=== PATIENT | male | born 1950 | race African-American/Black ===

== ENCOUNTER 2017-08-27 06:22 | Day surgery (SDC) | payer OTHER, BC ==
[2017-08-24 14:09] VITALS: BMI 32.1
[~2017-08-27 06:22] MED LIST: CEFAZOLIN 1 GM/D5W 1 GM/50 ML BAG IVPB ONE; ROPIVICAINE 0.2%/MORPH PF/KETOROLAC - 51ML DISP.SYRINGE IA ONE; TRANEXAMIC ACID 1000 MG/10 ML VIAL IVPUSH ONE
[2017-08-27] MEDS: GABAPENTIN 300 MG CAPSULE (FP) PO ONE (06:45)
[2017-08-27] MEDS: oxyCODONE HCL 10 MG SUSTAINED ACTING TABLET PO ONE (06:45)
[2017-08-27] MEDS: CELECOXIB 200 MG CAPSULE PO ONE (06:45)
[2017-08-27] MEDS: PANTOPRAZOLE 40 MG TABLET (FP) PO ONE (06:45)
[2017-08-27] MEDS ORDERED: SUCCINYLCHOLINE CHLORIDE 200 MG/10 ML VIAL ONE (07:10)
[2017-08-27] MEDS ORDERED: PROPOFOL 20 ML ONE (07:10)
--- NOTE | 2017-08-27 07:24 | HP ---
Admitting History and Physical - Admission Chief Complaint: left knee osteoarthritis x years History of Present Illness: 67-year-old male presenting in regard to his left knee. Patient has a long standing history of left knee osteoarthritis. Patient complains of pain, limited range of motion, difficulty ambulating, and acoustical tea with activities of daily living. Patient has failed conservative treatment measures including PO medications, activity modification, exercise program, and injections. At this point as patient has failed conservative treatment measures , he would like to proceed with surgical intervention., left partial knee replacement - MAKOplasty History Source: Patient - Past Medical History Cardiovascular: Yes: HTN Musculoskeletal: Yes: Osteoarthritis - Past Surgical History Past Surgical History: Yes: Arthrosocopy (left knee arthroscopy) Additional Past Surgical History: See written history & physical - Smoking History Smoking history: Never smoked Have you smoked in the past 12 months: No - Alcohol/Substance Use Hx Alcohol Use: No - Social History ADL: Independent History of Recent Travel: No Home Medications - Allergies Allergies/Adverse Reactions: Allergies Allergy/AdvReac Type Severity Reaction Status Date / Time No Known Drug Allergies Allergy Verified 08/27/17 06:19 - Home Medications Home Medications: Ambulatory Orders Lisinopril [Prinivil] 20 mg PO DAILY 10/09/15 Metoprolol Tartrate 100 mg PO DAILY 10/09/15 Physical Examination Vital Signs: Vital Signs Temperature 97.9 F 08/27/17 06:11 Pulse Rate 59 L 08/27/17 06:11 Respiratory Rate 19 08/27/17 06:11 Blood Pressure 117/78 08/27/17 06:11 O2 Sat by Pulse Oximetry (%) 98 08/27/17 06:11 Constitutional: Yes: Well Nourished, No Distress Eyes: Yes: Conjunctiva Clear HENT: Yes: Atraumatic, Normocephalic Neck: Yes: Supple Cardiovascular: Yes: Regular Rate and Rhythm Respiratory: Yes: Regular Gastrointestinal: Yes: Soft Musculoskeletal: Yes: Joint Stiffness (left knee), Joint Swelling (left knee) Assessment/Plan 67-year-old male presenting in regard to his left knee. Patient has a long standing history of left knee osteoarthritis. Patient complains of pain, limited range of motion, difficulty ambulating, and acoustical tea with activities of daily living. Patient has failed conservative treatment measures including PO medications, activity modification, exercise program, and injections. At this point as patient has failed conservative treatment measures , he would like to proceed with surgical intervention. Pros, cons, risks, benefits and alternatives of a left partial knee replacement - MAKOplasty were discussed at length. Patient confirms their understanding and consents to proceed with a left partial knee replacement (medial clmpartment) - MAKOplasty.
[2017-08-27] MEDS ORDERED: VANCOMYCIN 1,000 MG VIAL (RESTRICTED TO ID ONLY) ONE (07:25)
[2017-08-27] MEDS ORDERED: ceFAZolin SODIUM 1 GM VIAL ONE ×2 (07:25→08:10)
[2017-08-27] MEDS ORDERED: GELATIN, ABSORBABLE 100 EACH SPONGE TP ONE (07:25)
[2017-08-27] MEDS ORDERED: THROMBIN (BOVINE) 5,000 UNIT VIAL TP ONE (07:25)
[2017-08-27] MEDS ORDERED: ROPIVICAINE 0.2%/MORPH PF/KETOROLAC - 51ML DISP.SYRINGE IA ONE (07:26)
[2017-08-27] MEDS ORDERED: BUPIVACAINE HCL/PF (5 MG/ML) 30 ML VIAL IJ ONE (07:28)
[2017-08-27] MEDS ORDERED: MIDAZOLAM HCL 2 MG/2 ML SINGLE DOSE VIAL ONE ×3 (07:28→10:26)
[2017-08-27] MEDS ORDERED: BUPIVACAINE LIPOSOME/PF (EXPAREL) 266 MG/20 ML VIAL ONE (07:28)
[2017-08-27] MEDS ORDERED: SODIUM CHLORIDE 0.9% P/F 10 ML VIAL IJ ONE (07:32)
[2017-08-27] MEDS ORDERED: TRANEXAMIC ACID 1000 MG/10 ML VIAL ONE ×2 (08:41→10:46)
[2017-08-27] MEDS ORDERED: MAG HYDROX/AL HYDROX/SIMETH 30 ML UNIT-DOSE CUP PO PRN (12:03)
[2017-08-27] MEDS ORDERED: ONDANSETRON 4 MG/2 ML VIAL IVPUSH PRN (12:03)
--- NOTE | 2017-08-27 12:09 | OP ---
Operative Note - Note: Operative Date: 08/27/17 Pre-Operative Diagnosis: Left knee medial compartment osteoarthritis Operation: Left MAKOplasty partial medial knee replacement Post-Operative Diagnosis: Same as Pre-op Surgeon: Riley Hoang Geospatial Applications Developer: Nic Lim Anesthesia: Spinal Estimated Blood Loss (mls): 150
[2017-08-27] MEDS: KETOROLAC TROMETHAMINE 30 MG/1 ML VIAL IVPUSH SCH ×3 (12:10→23:47)
[2017-08-27] MEDS: ACETAMINOPHEN 1000 MG/100 ML VIAL (NON FORMULARY) IVPB ONE (12:11)
[2017-08-27] MEDS ORDERED: LACTATED RINGERS SOLUTION 1,000 ML IV SCH (12:15)
[2017-08-27] MEDS ORDERED: BUPIVACAINE HCL/PF 0.5% (5MG/ML) 10 ML VIAL ONE (12:15)
[2017-08-27] MEDS: traMADol HCL 50 MG TABLET PO SCH (12:30)
[2017-08-27] MEDS ORDERED: oxyCODONE HCL 5 MG TABLET PO PRN ×2 (15:42)
--- NOTE | 2017-08-27 16:55 | SURG ---
Surgery Director Of Payroll Note Director Of Payroll: Nic Lim PA-C Date of Service: 08/27/17 Diagnosis: Left knee degenerative joint disease Procedure: Left knee partial joint replacement I was present for the entirety of the operative procedure. For further detail, please refer to operative report.
[2017-08-27] MEDS: ACETAMINOPHEN 325 MG TABLET (FP) PO SCH ×2 (17:44→23:45)
[2017-08-27] MEDS: CEFAZOLIN 2 GM/D5W 2 GM/50 ML ML IVPB SCH (17:45)
[2017-08-27] MEDS ORDERED: DEXAMETHASONE SOD PHOSPHATE 10 MG/1 ML VIAL IVPB ONE (20:00)
[2017-08-27] MEDS ORDERED: DEXAMETHASONE SOD PHOSPHATE 10 MG/1 ML VIAL ONE (20:20)
[2017-08-27] MEDS: CELECOXIB 200 MG CAPSULE PO SCH (23:45)
[2017-08-27] MEDS: ASCORBIC ACID 500 MG TABLET (FP) PO SCH (23:47)
[2017-08-27] MEDS: SENNOSIDES/DOCUSATE COMBO (SENNA PLUS) TABLET (UD) PO SCH (23:48)
[2017-08-27] MEDS: GABAPENTIN 300 MG CAPSULE (FP) PO SCH (23:48)
[2017-08-28] MEDS: traMADol HCL 50 MG TABLET PO SCH ×5 (00:12→12:17)
[2017-08-28] MEDS: CEFAZOLIN 2 GM/D5W 2 GM/50 ML ML IVPB SCH (01:07)
[2017-08-28] MEDS: ACETAMINOPHEN 325 MG TABLET (FP) PO SCH ×2 (04:10→09:22)
[2017-08-28] MEDS ORDERED: traMADol HCL 50 MG TABLET ONE (04:47)
[2017-08-28] MEDS: KETOROLAC TROMETHAMINE 30 MG/1 ML VIAL IVPUSH SCH ×2 (06:08→07:29)
[2017-08-28] MEDS: CELECOXIB 200 MG CAPSULE PO ONE (07:27)
[2017-08-28] MEDS: ACETAMINOPHEN 1000 MG/100 ML VIAL (NON FORMULARY) IVPB ONE (07:28)
[2017-08-28] MEDS: GABAPENTIN 300 MG CAPSULE (FP) PO ONE (07:28)
[2017-08-28] MEDS: oxyCODONE HCL 10 MG SUSTAINED ACTING TABLET PO ONE (07:28)
[2017-08-28] MEDS: PANTOPRAZOLE 40 MG TABLET (FP) PO ONE (07:28)
[2017-08-28] MEDS ORDERED: ASPIRIN 325 MG TABLET PO SCH (08:00)
[2017-08-28 08:04] LABS: HEMOGLOBIN 13.4 GM/dl (11.7-16.9)
[2017-08-28 08:14] LABS: HEMATOCRIT 39.2 % (35.4-49); MCH 31.7 pg (25.7-33.7); MCHC 34.1 g/dl (32.0-35.9); MEAN CELL VOLUME 93.1 fl (80-96); MEAN PLT VOLUME 8.6 fl (7.5-11.1); PLATELET COUNT 171 K/MM3 (134-434); RBC 4.21 M/mm3 (4.00-5.60); RDW 12.7 % (11.9-15.9); WHITE BLOOD COUNT 4.5 K/mm3 (4.0-10.8)
[2017-08-28 08:39] LABS: ANION GAP 5 (8-16); BLOOD UREA NITROGEN 30 mg/dl (7-18); CALCIUM 9.2 mg/dl (8.4-10.2); CHLORIDE 104 mmol/L (98-107); CO2 25 mmol/L (22-28); CREATININE 1.7 mg/dl (0.6-1.3); GLUCOSE,RANDOM 147 mg/dl (74-106); POTASSIUM 4.3 mmol/L (3.5-5.1); SODIUM 134 mmol/L (136-145)
[2017-08-28] MEDS ORDERED: PT OWN MED DRAWER 7, Y5N ONE (09:06)
[2017-08-28 09:20] VITALS: BP 117/61; PULSE 54; TEMP 97.6
[2017-08-28] MEDS: ASCORBIC ACID 500 MG TABLET (FP) PO SCH (09:22)
[2017-08-28] MEDS: GABAPENTIN 300 MG CAPSULE (FP) PO SCH (09:22)
[2017-08-28] MEDS: SENNOSIDES/DOCUSATE COMBO (SENNA PLUS) TABLET (UD) PO SCH (09:22)
[2017-08-28] MEDS: CELECOXIB 200 MG CAPSULE PO SCH (09:22)
[2017-08-28] MEDS ORDERED: LISINOPRIL 20 MG TABLET (FP) PO SCH (10:00)
[2017-08-28] MEDS ORDERED: METOPROLOL TARTRATE 50 MG TABLET (FP) PO SCH (10:00)
[2017-08-28] MEDS ORDERED: MULTIVITAMINS (DAILY MVI) TABLET (FP) PO SCH (10:00)
[2017-08-28] MEDS ORDERED: PANTOPRAZOLE 40 MG TABLET (FP) PO SCH (10:00)
--- NOTE | 2017-08-28 10:06 | PN ---
Progress Note, Physician Chief Complaint: day #1 s/p left knee partial CARLOS - Current Medication List Current Medications: Active Medications Acetaminophen (Tylenol -) 650 mg PO Q6H [facility] Stop: 08/30/17 15:44 Last Admin: 08/28/17 09:22 Dose: Not Given Al Hydroxide/Mg Hydroxide (Mylanta Oral Suspension -) 30 ml PO Q4H PRN PRN Reason: DYSPEPSIA Ascorbic Acid (Vitamin C -) 500 mg PO BID [facility] Last Admin: 08/28/17 09:22 Dose: 500 mg Aspirin (Asa -) 325 mg PO DAILY@0800 [facility] Last Admin: 08/28/17 08:14 Dose: 325 mg Celecoxib (Celebrex -) 200 mg PO BID [facility] Last Admin: 08/28/17 09:22 Dose: 200 mg Fentanyl (Sublimaze Injection -) 50 mcg IVPUSH [id number] PRN PRN Reason: PAIN-PACU ORDER X 4 DOSES ONLY Gabapentin (Neurontin -) 300 mg PO BID [facility] Stop: 08/30/17 21:59 Last Admin: 08/28/17 09:22 Dose: 300 mg Lisinopril (Prinivil) 20 mg PO DAILY [facility] Last Admin: 08/28/17 09:22 Dose: 20 mg Metoprolol Tartrate (Lopressor -) 100 mg PO DAILY [facility] Last Admin: 08/28/17 09:21 Dose: 100 mg Multivitamins/Minerals/Vitamin C (Tab-A-Vit -) 1 tab PO DAILY [facility] Last Admin: 08/28/17 09:21 Dose: 1 tab Ondansetron HCl (Zofran Injection) 4 mg IVPUSH Q6H PRN PRN Reason: NAUSEA Last Admin: 08/27/17 23:50 Dose: 4 mg Oxycodone HCl (Roxicodone -) 5 mg PO Q3H PRN PRN Reason: PAIN LEVEL 1-5 Oxycodone HCl (Roxicodone -) 10 mg PO Q3H PRN PRN Reason: PAIN LEVEL 6-10 Pantoprazole Sodium (Protonix -) 40 mg PO DAILY [facility] Last Admin: 08/28/17 09:22 Dose: 40 mg Senna/Docusate Sodium (Pericolace -) 2 tablet PO BID [facility] Last Admin: 08/28/17 09:22 Dose: 2 tablet Tramadol HCl (Ultram -) 50 mg PO Q6H [facility] Last Admin: 08/28/17 07:31 Dose: Not Given - Objective Vital Signs: Vital Signs Temperature 97.6 F 08/28/17 09:19 Pulse Rate 54 L 08/28/17 09:19 Respiratory Rate 18 08/28/17 09:19 Blood Pressure 117/61 08/28/17 09:19 O2 Sat by Pulse Oximetry (%) 99 08/28/17 06:00 Labs: CBC, BMP 08/28/17 07:10 08/28/17 07:10 Assessment/Plan Pt doing well; minimal pain after knee partial CARLOS. He is very happy with the nerve blocks
--- NOTE | 2017-08-28 11:28 | DS ---
Physical Examination Vital Signs: Vital Signs Temperature 97.6 F 08/28/17 09:19 Pulse Rate 54 L 08/28/17 09:19 Respiratory Rate 18 08/28/17 09:19 Blood Pressure 117/61 08/28/17 09:19 O2 Sat by Pulse Oximetry (%) 99 08/28/17 06:00 Labs: CBC, BMP 08/28/17 07:10 08/28/17 07:10 Discharge Summary Reason For Visit: LEFT KNEE OSTEOARTHRITIS Current Active Problems Osteoarthritis of left knee (Acute) Procedures: Principal: Left medial CARLOS [facility] Hospital Course: Admitted for elective surgery. Procedure performed without complications. Pt received postoperative antibiotic prophylaxis and DVT ppx. Ambulated with physical therapy. Stable for discharge home with outpatient followup. Condition: Stable - Instructions Diet, Activity, Other Instructions: Dr Hoang - Knee Replacement Instructions Keep the Aquacel dressing on until removed by Dr. Hoang in 10-14 days - it is antibacterial and waterproof and you can shower with it on. Call the office for a follow-up appointment with Dr. Hoang in 10-14 days. Take one Aspirin 325mg daily for 6 weeks to prevent blood clots in your legs. Take one Pantoprazole 40mg daily for 6 weeks to protect against heartburn and ulcers. Take Celebrex 200mg twice daily for 30 days to reduce swelling and inflammation. Take Cephalexin (antibiotic) 3x/day for 10 days to help prevent skin infection. Take a multivitamin, stool softener, and extra vitamin C supplement daily. For pain: *Mild pain (1-3/10): Take 1 Tramadol tablet every 4 hours as needed. Moderate pain (4-6/10): Take 1 Tramadol tablet and 1 Percocet tablet every 4 hours as needed. Severe pain (7-10/10): Take 1 Tramadol tablet and 2 Percocet tablets every 4 hours as needed. Activity: You can put as much weight on the operative leg as you want. Right after you get home, there will be a physical therapist coming to your house to help you walk around and bend/straighten your knee. After your follow-up appointment, you will be sent for more intensive outpatient physical therapy which will include machines and equipment that the home therapist cannot bring to your house. Always use a walker or cane for balance and to prevent falls. Expect to see swelling/bruising from the operative site all the way down to your toes. Wear the compression stocking on the operative side during the day to minimize how much swelling there is in your foot/ankle. Don't wear the stocking at night. You don't have to wear a stocking on the other side. Disposition: [facility]/HOME HEALTH CARE - Home Medications Comprehensive Discharge Medication List: Ambulatory Orders Lisinopril [Prinivil] 20 mg PO DAILY 10/09/15 Metoprolol Tartrate 100 mg PO DAILY 10/09/15 Ascorbic Acid [Vitamin C -] 500 mg PO BID tablet 08/28/17 Aspirin [ASA -] 325 mg PO DAILY@0800 tablet 08/28/17 Celecoxib [CeleBREX -] 200 mg PO BID #60 capsule 08/28/17 Cephalexin Monohydrate [Keflex -] 500 mg PO TID #30 capsule 08/28/17 Multivitamins [Multivit ([facility] Formul[facility])] 1 tab PO DAILY tab 08/28/17 Oxycodone HCl/Acetaminophen [Percocet 5-325 mg Tablet] 1 - 2 tab PO Q4H PRN #60 tablet MDD 8 08/28/17 Pantoprazole Sodium [Protonix -] 40 mg PO DAILY #40 tablet.ec 08/28/17 Sennosides/Docusate Sodium [Pericolace -] 2 tablet PO BID tablet 08/28/17 traMADol HCL [Ultram -] 50 mg PO Q4H PRN #90 tablet MDD 6 08/28/17
--- NOTE | 2017-09-03 08:28 | SPEC ---
DATE OF OPERATION: 08/27/2017 PREOPERATIVE DIAGNOSIS: Left knee osteoarthritis. POSTOPERATIVE DIAGNOSIS: Left knee osteoarthritis. PROCEDURE: Left knee medial unicompartmental knee replacement with MAKOplasty robotic navigation. ATTENDING: Khadijah Guerra MD FUEL HANDLER: ANESTHESIA: Spinal plus sedation. ESTIMATED BLOOD LOSS: 150 mL. COMPLICATIONS: None. SPECIMENS: None. DISPOSITION: The patient was transferred to the PACU in stable condition. IMPLANT USED: CARLOS size 7 femoral component, size 7 tibial component, 8-mm polyethylene component. INDICATIONS: This is a 67-year-old male with a history of bilateral knee osteoarthritis who is a long-time patient of [facility]. He had undergone a right knee medial MAKOplasty last year and did well postoperatively. He continued to have severe pain in his left knee which was completely localized to the medial compartment. He was initially treated nonoperatively but failed conservative management and was therefore indicated for a left knee medial unicompartmental knee replacement with MAKOplasty robotic navigation. The risks, benefits, and alternatives to the surgery were explained to the patient in great detail, and he elected to proceed with the surgery. We confirmed again preoperatively that the patient's pain was completely in the medial compartment and he did not have pain in the lateral and patellofemoral compartments. DESCRIPTION OF PROCEDURE: On the day of surgery the patient was taken to the operating room. The patient was seen and examined by Dr. Guerra and diagnosed with isolated medial compartment osteoarthritis. The knee pain was localized to the medial joint line and there were no complaints of pain in other areas of the knee. Because of failure of initial conservative treatment, the patient was indicated for a partial knee replacement. The risks, benefits and alternatives of the procedure were explained in great detail and the patient elected to proceed with surgery. These risks included, but are not limited to, anesthesia risks, scarring, instability, stiffness, infection, pulmonary embolus, deep vein thrombosis, intraoperative fracture, intraoperative neurovascular injury, problems with wound healing, failed procedure, persistent pain, nerve injury, possibility of lower limb numbness and weakness, the need for possible subsequent salvage surgeries, persistent limp, disability and . On the day of surgery the patient was taken to the operating room and placed on the OR table. Spinal anesthesia was administered by the anesthesiologist. The patient was then positioned supine on the table and all bony prominences were padded. A nonsterile tourniquet was placed on the proximal thigh of the operative leg. The knee was then prepped and draped in the usual sterile fashion and intravenous antibiotics were given for infection prophylaxis. A surgical time out was then performed with the team and the patient's identify, procedure, side, availability of implants and the administration of antibiotics was confirmed. With the knee flexed, an 8 cm incision was made just slightly medial to the midline and carried down through the subcutaneous fat to the underlying retinaculum. Electrocautery was used to achieve hemostasis. A limited medial parapatellar arthrotomy was performed. This was followed by a subperiosteal dissection of the tissue off the proximal medial tibia. A portion of fat pad was removed from under the patellar tendon to improve visualization and a small portion of fat was excised off the distal supracondylar femur. The knee was then flexed further and the anterior horn of the medial meniscus was released. Grade 4 changes were noted diffusely throughout the medial compartment. The lateral compartment appeared to be in good condition. Femoral and tibial checkpoints were then placed in the appropriate location using a mallet. Two parallel bicortical self-drilling pins were placed in the proximal tibia after making stab incisions and bluntly dissecting down to bone. These were positioned approximately 10 cm distal to the tibial tubercle. Two pins were then placed in the proximal femur using the same technique. These were located approximately 10 cm proximal to the superior pole of the patella. The [employer] navigation arrays were then attached to both the femoral and tibial pins and the lower extremity was then registered to the robotic navigation device using various joint movements, as well as inputting approximately 50 checkpoints. The knee was then taken through a full range of motion with a corrective valgus force applied. Alignment in varus/valgus was measured at 0, 30, 60, 90 and 120 degrees of flexion to determine soft tissue balance in all of these positions. The navigation device showed appropriate tracking of the virtual components on the screen, as well as a graphic representation of the soft tissue balance. The components were repositioned virtually using the software until optimal soft tissue balance was achieved. Once this was accomplished, the final plan was saved and sent to the robot. Retractors were then placed around the distal femur. The robot was brought into the sterile field and registered with the navigation device. The robotic arm with a faraz was then used to remove the appropriate amount of bone from the femur and tibia as per the saved software plan. The knee was then irrigated. Trial components were placed and the knee was taken through a full range of motion to assess soft tissue balance and alignment. The tracking and range of motion were found to be excellent and the soft tissue balance was optimal and according to plan. All trial components were then removed and an Esmarch bandage was used to exsanguinate the leg. The tourniquet was inflated in preparation for cementing. All bony surfaces were cleaned with pulsatile lavage and dried. Bone cement was then prepared on the back table and final components were cemented in place in the usual fashion. Extruded cement was removed. Once the cement had hardened, the knee was taken through a full range of motion to assess stability, balance and patellar tracking. These were found to be optimal. The trial polyethylene was exchanged for a final implant. Medial and inferior osteophytes were debrided off the patella (patelloplasty). The navigation arrays and Sumanth pins were removed from the femur and tibia. All wounds were then thoroughly irrigated with normal saline. A periarticular injection was used to locally infiltrate the capsular tissues surrounding the implant and prosthesis. A 1 Vicryl and 0 V-Loc 180 barbed sutures were used to close the arthrotomy. 2-0 Vicryl sutures were used in the subcutaneous tissues. The skin was closed using both 3-0 V-Loc 90 suture in a running subcuticular fashion and Dermabond skin adhesive. 4-0 undyed Vicryl and Dermabond skin adhesive was used to close the stab incisions made for the navigation pins. Once this was completed, sterile Aquacel dressings were applied to each incision site. A compressive dressing was applied. The tourniquet was then deflated and the patient was awakened and went to the PACU in stable condition. ADDENDUM: After final implants were placed, a 3-minute dilute Betadine lavage was performed. Following this, the wound was thoroughly irrigated with normal saline via pulse lavage and wound closure was begun. KHADIJAH GUERRA M.D. [id number]
== END 2017-08-28 13:10 | disposition home health service (06) ==
LOC: FASU 06:22 → FM/S 13:06 → FASU 13:06
PROVIDERS: ATTEND Student in an Organized Health Care Education/Training Program
PROC: 8E0YXBZ Computer Assisted Procedure of Lower Extremity (ICD-10-PCS; 2017-08-27)
PROC: 8E0Y0CZ Robotic Assisted Procedure of Lower Extremity, Open Approach (ICD-10-PCS; 2017-08-27)
PROC: 0SRD0L9 Replacement of Left Knee Joint with Medial Unicondylar Synthetic Substitute, Cemented, Open Approach (ICD-10-PCS; principal; 2017-08-27 08:42)
DX: M17.12 Unilateral primary osteoarthritis, left knee (principal)
CPT/HCPCS: 20985; 27446; C1776; S2900; 36415; 73560-TC-LT-FY; 80048; 85027; 94010; 94760; 97116-GP; 97162-GP; J0131; J1100